=== PATIENT | male | born 1965 | race Caucasian/White ===

== ENCOUNTER 2020-06-06 10:01 | Emergency (ER) | payer SELFPAY ==
[~2020-06-06] VITALS: Ht 177.8 cm; Wt 98.7 kg
[2020-06-06 10:02] VITALS: BP 129/71
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
--- NOTE | 2020-06-06 11:06 | NUR ---
Pt to CT
[2020-06-06] MEDS ORDERED: BENZONATATE 100 MG CAPSULE PO ONE (11:30)
[2020-06-06] MEDS ORDERED: BENZONATATE 100 MG CAPSULE ONE (12:06)
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
== END 2020-06-06 11:41 | disposition home or self-care (01) ==
LOC: ED 10:33
DX: M54.2 Cervicalgia (principal)
CPT/HCPCS: 72125; 99284

== ENCOUNTER 2020-08-15 21:13 | Emergency (ER) | payer SELFPAY ==
[~2020-08-15] VITALS: Ht 177.8 cm; Wt 99.7 kg
[2020-08-15] MEDS ORDERED: ACETAMINOPHEN 325 MG TABLET ONE (22:00)
[2020-08-15] MEDS ORDERED: ACETAMINOPHEN 325 MG TABLET PO ONE (22:00)
--- NOTE | 2020-08-15 22:03 | NUR ---
PT BIB SELF VIA POV. PER PT "I'M LOSING LEG MOBILITY. I HAVE PAIN ON THE BACK OF MY LEGS. I'VE HAD BLOOD CLOTS IN THE PASTIN MY LEFT LEG". PT RESTING IN [facility], MONITORING IN PLACE, [place] AT THIS TIME, [place].
[2020-08-15 22:30] VITALS: BP 117/57
== END 2020-08-16 00:16 | disposition left against medical advice (07) ==
LOC: ED 21:48
DX: G89.29 Other chronic pain (principal); M79.661 Pain in right lower leg; M79.662 Pain in left lower leg; Z86.718 Personal history of other venous thrombosis and embolism
CPT/HCPCS: 93970; 99284